=== PATIENT | male | born 1995 | race Caucasian/White ===

== ENCOUNTER 2017-04-10 20:09 | Emergency (ER) | payer OTHER ==
[2017-04-10 20:57] VITALS: BP 144/100
[2017-04-10 21:32] LABS: Hemoglobin 17.3 gm/dl (11.8-15.2); Mean Corpuscular HGB Conc 33 % (32-34); Mean Corpuscular Hemoglobin 29 pg (28-32); Mean Corpuscular Volume 87 fl (84-94); Platelet Count 260 K/mm3 (140-440); Red Blood Count 6.07 M/mm3 (3.65-5.03); Red Cell Distribution Width 13.7 % (13.2-15.2); White Blood Count 21.6 K/mm3 (4.5-11.0)
[2017-04-10 21:35] LABS: BUN/Creatinine Ratio 6.33; Calcium 11.4 mg/dL (8.4-10.2); Chloride 94.3 mmol/L (98-107); Potassium 4.5 mmol/L (3.6-5.0)
[2017-04-10 23:03] LABS: Basophils % (Manual) 0 % (0.0-1.8); Blastocytes % (Manual) 0 %; Eosinophils % (Manual) 0 % (0.0-4.3)
[2017-04-10 23:06] LABS: Diff Status Complete; Ovalocytes Few
--- NOTE | 2017-05-01 15:23 | ED Elopement Review ---
ED Pt Elopement review - Results review Lab results: Laboratory Tests 04/10/17 04/10/17 21:08 21:08 WBC 21.6 H RBC 6.07 H Hgb 17.3 H Hct 53.0 H MCV 87 MCH 29 MCHC 33 RDW 13.7 Plt Count 260 Add Manual Diff Complete Total Counted 100 Seg Neutrophils % [place] Roofer Seg Neuts % (Manual) 96.0 H Band Neutrophils % 2.0 Lymphocytes % (Manual) 1.0 L Reactive Lymphs % (Man) 0 Monocytes % (Manual) 1.0 Eosinophils % (Manual) 0 Basophils % (Manual) 0 Metamyelocytes % 0 Myelocytes % 0 Promyelocytes % 0 Blast Cells % 0 Nucleated RBC % Not Reportable Seg Neutrophils # Man 20.7 H Band Neutrophils # 0.4 Lymphocytes # (Manual) 0.2 L Abs React Lymphs (Man) 0.0 Monocytes # (Manual) 0.2 Eosinophils # (Manual) 0.0 Basophils # (Manual) 0.0 Metamyelocytes # 0.0 Myelocytes # 0.0 Promyelocytes # 0.0 Blast Cells # 0.0 WBC Morphology Not Reportable Hypersegmented Neuts Not Reportable Hyposegmented Neuts Not Reportable Hypogranular Neuts Not Reportable Smudge Cells Not Reportable Toxic Granulation Not Reportable Toxic Vacuolation Not Reportable Dohle Bodies Not Reportable Pelger-Huet Anomaly Not Reportable Colleen Rods Not Reportable Platelet Estimate Appears normal Clumped Platelets Not Reportable Plt Clumps, EDTA Not Reportable Large Platelets Not Reportable Giant Platelets Not Reportable Platelet Satelliting Not Reportable Plt Morphology Comment Not Reportable RBC Morphology Not Reportable Dimorphic RBCs Not Reportable Polychromasia Not Reportable Hypochromasia Not Reportable Poikilocytosis Not Reportable Anisocytosis Not Reportable Microcytosis Not Reportable Macrocytosis Not Reportable Spherocytes Not Reportable Pappenheimer Bodies Not Reportable Sickle Cells Not Reportable Target Cells Not Reportable Tear Drop Cells Not Reportable Ovalocytes Few Helmet Cells Not Reportable [place] Bodies Not Reportable [place] Rings Not Reportable [place] Cells Not Reportable Bite Cells Not Reportable Crenated Cell Not Reportable Elliptocytes Not Reportable Acanthocytes (Spur) Not Reportable Rouleaux Not Reportable Hemoglobin C Crystals Not Reportable Schistocytes Not Reportable Malaria parasites Not Reportable Kenneth Bodies Not Reportable Hem Pathologist Commnt No Sodium 138 Potassium 4.5 Chloride 94.3 L Carbon Dioxide 20 L Anion Gap 28 BUN 19 Creatinine 3.0 H Estimated GFR 26 BUN/Creatinine Ratio 6.33 Glucose 140 H Calcium 11.4 H - Call Back decision Pt Call Back Decision: Call pt to return to ED PAU (patient with leukocytosis, renal failure and hypercalcemia should be further evaluated)
== END 2017-04-10 22:05 | disposition left against medical advice (07) ==
LOC: ED 20:09
DX: E86.0 Dehydration (principal); Z53.21 Procedure and treatment not carried out due to patient leaving prior to being seen by health care provider
CPT/HCPCS: 36415; 80048; 85007; 85025; 93005; 93010